=== PATIENT | female | born 1965 | race African-American/Black ===

== ENCOUNTER 2018-05-24 09:38 | Emergency (ER) | payer MEDICAID, MEDICARE ==
[~2018-05-24] VITALS: Ht 157.5 cm; Wt 50.0 kg
[~2018-05-24 09:38] MED LIST: CYCL10TA7 MT; DIPH50CA38 MT; LISI-186; TRAM50TA3 PO
[2018-05-24] MEDS ORDERED: SODIUM CHLORIDE 0.9% 1,000 ML IV ONE (09:50)
[2018-05-24] MEDS ORDERED: HYDROCODONE/ACETAMINOPHEN 5/325MG TABLET PO ONE (10:15)
[2018-05-24 10:26] LABS: BASOPHILS % 0.8 % (0.0-2.0); EOSINOPHILS % 0.6 % (0.0-5.0); HEMATOCRIT. 37.3 % (36.0-48.0); LYMPHOCYTES % 23.4 % (20.0-50.0); MEAN CORPUSCULAR HEMOGLOBIN 30.1 pg (28.0-32.0); MEAN CORPUSCULAR VOLUME 86.5 fL (81.0-99.0); MEAN PLATELET VOLUME 9.5 fl (7.4-10.4); NEUTROPHILS % 68.2 % (40.0-76.0); PLATELET 199 x1000/uL (130-400); RED BLOOD CELL COUNT 4.31 mill/uL (4.2-5.4)
[2018-05-24 10:27] LABS: CHLORIDE 89 mEq/L (98-107)
[2018-05-24] MEDS ORDERED: KETOROLAC 30MG/ML VIAL IV ONE (12:45)
[2018-05-24 15:10] VITALS: BP 139/90
== END 2018-05-24 15:25 | disposition short-term general hospital (02) ==
LOC: ER 10:02 → CANBEDREQ 14:10 → ER 15:25
DX: R55 Syncope and collapse (principal); E86.0 Dehydration; R79.89 Other specified abnormal findings of blood chemistry; R11.2 Nausea with vomiting, unspecified; R51 Headache; J45.909 Unspecified asthma, uncomplicated; E11.9 Type 2 diabetes mellitus without complications; I10 Essential (primary) hypertension; Z88.0 Allergy status to penicillin; Z79.899 Other long term (current) drug therapy
CPT/HCPCS: 36415; 71045; 80053; 82962; 83605; 83880; 84484; 85025; 93005; 96361; 96374; 99285; J1885; J7030; Z7610

== ENCOUNTER 2018-07-08 22:47 | Inpatient (IN) | payer MEDICARE ==
[~2018-07-08] VITALS: Ht 167.6 cm; Wt 62.1 kg
[2018-07-08] MEDS ORDERED: KETOROLAC 30MG/ML VIAL IV STA (23:06)
[2018-07-08] MEDS ORDERED: METHYLPREDNISOLONE SOD SUCC 125 MG/2 ML VIAL IV STA (23:06)
[2018-07-08 23:44] LABS: BASOPHILS % 0.5 % (0.0-2.0); EOSINOPHILS % 1.5 % (0.0-5.0); HEMATOCRIT. 26.3 % (36.0-48.0); HEMOGLOBIN. 8.9 g/dL (12.0-16.0); LYMPHOCYTES % 18.3 % (20.0-50.0); MEAN CORPUSCULAR HEMOGLOBIN 30.3 pg (28.0-32.0); MEAN CORPUSCULAR VOLUME 89.1 fL (81.0-99.0); MEAN PLATELET VOLUME 8.7 fl (7.4-10.4); MONOCYTES % 6.8 % (2.0-8.0); NEUTROPHILS % 72.9 % (40.0-76.0); PLATELET 242 x1000/uL (130-400); RED BLOOD CELL COUNT 2.95 mill/uL (4.2-5.4); RED CELL DISTRIBUTION WIDTH 14.5 % (11.6-14.6)
[2018-07-08 23:52] LABS: CHLORIDE 100 mEq/L (98-107)
[2018-07-09] MEDS ORDERED: LABETALOL HCL 20MG/4ML CARPUJECT IV ONE ×2 (00:45→02:30)
[2018-07-09] MEDS ORDERED: MORPHINE SULFATE 4 MG/ML CPJ (NOT FOR IM USE) IV ONE (02:30)
[2018-07-09] MEDS ORDERED: DIPHENHYDRAMINE 25MG CAPSULE PO ONE (02:30)
[2018-07-09] MEDS ORDERED: CLONIDINE 0.2MG TABLET PO ONE ×2 (02:30→08:30)
[2018-07-09] MEDS ORDERED: MORPHINE SULFATE 4 MG/ML CPJ (NOT FOR IM USE) IV NR (03:45)
[2018-07-09] MEDS ORDERED: LABETALOL HCL 20MG/4ML CARPUJECT IV NR (03:45)
[2018-07-09] MEDS ORDERED: FUROSEMIDE 40MG/4ML VIAL IVP ONE (08:30)
[2018-07-09] MEDS ORDERED: GUAIFENESIN 200MG/10ML SUGAR FREE UDC PO PRN (10:15)
[2018-07-09] MEDS ORDERED: DOCUSATE SODIUM 100MG CAPSULE PO PRN (10:15)
[2018-07-09] MEDS ORDERED: HYDROCODONE/ACETAMINOPHEN 5/325MG TABLET PO PRN (10:15)
[2018-07-09] MEDS ORDERED: ACETAMINOPHEN 650MG SUPP PR PRN (10:15)
[2018-07-09] MEDS ORDERED: MAGNESIUM/ALUMINUM HYDROXIDE/SIMETHICONE 30ML UDC PO PRN (10:15)
[2018-07-09] MEDS ORDERED: LORAZEPAM 0.5MG TABLET PO PRN (10:15)
[2018-07-09] MEDS ORDERED: IPRATROPIUM/ALBUTEROL 0.5-3(2.5)MG/3ML NEB INH PRN (10:15)
[2018-07-09] MEDS ORDERED: NA PHOS,M-B/NA PHOS,DI-BA ENEMA 118ML PR PRN (10:15)
[2018-07-09] MEDS ORDERED: ACETAMINOPHEN 325MG TABLET PO PRN (10:15)
[2018-07-09] MEDS ORDERED: DEXTROSE 50% WATER 50ML SYRINGE IV PRN (10:15)
[2018-07-09] MEDS ORDERED: IPRATROPIUM/ALBUTEROL 0.5-3(2.5)MG/3ML NEB INH SCH (10:15)
[2018-07-09] MEDS: DIPHENHYDRAMINE 50MG/ML VIAL IV PRN ×2 (10:31→22:48)
[2018-07-09] MEDS: MORPHINE SULFATE 4 MG/ML CPJ (NOT FOR IM USE) IV PRN ×3 (10:31→21:51)
[2018-07-09] MEDS ORDERED: LOSARTAN POTASSIUM 50 MG TABLET PO NR (10:45)
[2018-07-09] MEDS ORDERED: AMLODIPINE 5MG TABLET PO NR (10:45)
[2018-07-09 10:53] LABS: BG BASE EXCESS 0.2 mmol/L (-2.0-2.0); BG CARBOXYHEMOGLOBIN 1.2 % (0.5-1.5); BG DEOXYHEMOGLOBIN 16.7 % (0.0-5.0); BG HCO3 ACT 23.9 mmol/L (22.0-26.0); BG METHEMOGLOBIN 0.3 % (0.0-1.5); BG OXYHEMOGLOBIN 81.8 % (94.0-97.0); BG PCO2 35.6 mmHg (35.0-45.0); BG PH 7.445 (7.350-7.450); BG PO2 47.1 mmHg (75.0-100.0); BG SAMPLE SITE RIGHT BRACHIAL; BG TOTAL HEMOGLOBIN 11.4 g/dL (12.0-18.0); BG VENT MODE ROOM AIR
[2018-07-09 11:03] LABS: PROTHROMBIN TIME 10.4 sec (9.1-11.1)
[2018-07-09 11:14] LABS: PHOSPHORUS 3.7 mg/dL (2.5-4.9)
[2018-07-09 11:24] LABS: HEMATOCRIT 28.5 % (36.0-48.0); HEMOGLOBIN 9.4 g/dL (12.0-16.0); MEAN CORPUSCULAR HEMOGLOBIN 29.5 pg (28.0-32.0); MEAN CORPUSCULAR VOLUME 89.7 fL (81.0-99.0); PLATELET 248 x1000/uL (130-400); RED BLOOD CELL COUNT 3.18 mill/uL (4.2-5.4); RED CELL DISTRIBUTION WIDTH 14.9 % (11.6-14.6)
[2018-07-09] MEDS ORDERED: HYDRALAZINE 20MG/ML VIAL IV PRN (11:30)
[2018-07-09] MEDS ORDERED: LABETALOL 5MG/ML SYR 20 MG/4 ML SYRINGE IV SCH (11:30)
[2018-07-09] MEDS ORDERED: INSULIN GLARGINE UD 100 UNITS/ML SYR SUBCUT ONE (12:30)
[2018-07-09] MEDS: INSULIN LISPRO 100 UNITS/ML SUBCUT SCH ×3 (13:01→22:02)
[2018-07-09] MEDS ORDERED: INSULIN LISPRO 100 UNITS/ML SUBCUT SCH (13:20)
[2018-07-09 14:00] VITALS: BP_SYST 193; BP_SYST 203; BP_DIAS 103; BP_DIAS 96
[2018-07-09] MEDS ORDERED: CYCLOBENZAPRINE 10MG TABLET PO PRN (14:00)
[2018-07-09] MEDS: NICOTINE 14MG PATCH TD SCH (15:59)
[2018-07-09 16:00] VITALS: BP 202/108
[2018-07-09] MEDS: NITROGLYCERIN OINT 1GM/INCH UDPKT TD SCH ×2 (16:00→21:39)
[2018-07-09] MEDS: HYDRALAZINE 20MG/ML VIAL IV PRN (16:01)
[2018-07-09 16:02] LABS: CREATINE KINASE MB FRACTION 3.3 ng/mL (0.5-3.6)
[2018-07-09 18:00] VITALS: BP 181/90
[2018-07-09] MEDS: ONDANSETRON HCL 4MG/2ML INJ IV PRN ×2 (18:49→22:48)
[2018-07-09] MEDS: IPRATROPIUM/ALBUTEROL 0.5-3(2.5)MG/3ML NEB INH SCH (19:44)
[2018-07-09 20:00] VITALS: BP 198/105
[2018-07-09] MEDS ORDERED: NICARDIPINE 40MG/200ML PREMIX 200 ML IV SCH (20:15)
[2018-07-09] MEDS: BLOOD SUGAR DIAGNOSTIC STRIP TEST SCH (21:00)
[2018-07-09 22:00] VITALS: BP 166/97
[2018-07-09 23:56] VITALS: BP 176/96
[2018-07-10] VITALS (80 sets, daily range): BP systolic 122–171; BP diastolic 52–101
[2018-07-10] MEDS: HYDRALAZINE 20MG/ML VIAL IV PRN (00:01)
[2018-07-10] MEDS: NICARDIPINE 50 MG in SODIUM CHLORIDE 0.9% 230 ML IV PRN ×2 (00:36→13:48)
[2018-07-10] MEDS: MORPHINE SULFATE 4 MG/ML CPJ (NOT FOR IM USE) IV PRN ×5 (02:01→22:56)
[2018-07-10 05:48] LABS: BASOPHILS % 0.4 % (0.0-2.0); HEMATOCRIT. 24.1 % (36.0-48.0); LYMPHOCYTES % 13.6 % (20.0-50.0); MEAN CORPUSCULAR HEMOGLOBIN 29.5 pg (28.0-32.0); MEAN CORPUSCULAR VOLUME 88.9 fL (81.0-99.0); MONOCYTES % 7.9 % (2.0-8.0); NEUTROPHILS % 78.1 % (40.0-76.0); PLATELET 192 x1000/uL (130-400); RED BLOOD CELL COUNT 2.71 mill/uL (4.2-5.4); RED CELL DISTRIBUTION WIDTH 14.8 % (11.6-14.6)
[2018-07-10 05:53] LABS: CHLORIDE 98 mEq/L (98-107)
[2018-07-10 06:00] LABS: LDL CHOLESTEROL 72 mg/dL (5-100)
[2018-07-10 06:04] LABS: HDL CHOLESTEROL 70 mg/dL (40-59); T4 FREE 1.12 ng/dL (0.76-1.46)
[2018-07-10] MEDS: BLOOD SUGAR DIAGNOSTIC STRIP TEST SCH ×4 (06:35→21:08)
[2018-07-10] MEDS: INSULIN LISPRO 100 UNITS/ML SUBCUT SCH ×4 (06:42→21:00)
[2018-07-10] MEDS: NITROGLYCERIN OINT 1GM/INCH UDPKT TD SCH ×3 (06:43→21:08)
[2018-07-10] MEDS: DIPHENHYDRAMINE 50MG/ML VIAL IV PRN (08:59)
[2018-07-10] MEDS ORDERED: AMLODIPINE 5MG TABLET PO SCH (09:00)
[2018-07-10] MEDS ORDERED: LOSARTAN POTASSIUM 50 MG TABLET PO SCH (09:00)
[2018-07-10] MEDS ORDERED: FUROSEMIDE 40MG/4ML VIAL IV SCH (09:00)
[2018-07-10] MEDS: CLONIDINE 0.1MG TABLET PO PRN (09:01)
[2018-07-10] MEDS: NICOTINE 14MG PATCH TD SCH (09:02)
[2018-07-10] MEDS: IPRATROPIUM/ALBUTEROL 0.5-3(2.5)MG/3ML NEB INH SCH ×2 (09:05→21:33)
[2018-07-10] MEDS ORDERED: METOPROLOL TARTRATE 50MG TABLET PO ONE (11:30)
[2018-07-10] MEDS ORDERED: LORAZEPAM 0.5MG TABLET PO PRN (13:00)
[2018-07-10] MEDS ORDERED: DIPHENHYDRAMINE 50MG/ML VIAL IV PRN (13:00)
[2018-07-10] MEDS ORDERED: CYCLOBENZAPRINE 10MG TABLET PO PRN (13:00)
[2018-07-10] MEDS: SODIUM CHLORIDE 0.45% 1,000 ML IV SCH ×2 (13:48→22:56)
[2018-07-10] MEDS ORDERED: INSULIN GLARGINE UD 100 UNITS/ML SYR SUBCUT ONE (14:00)
[2018-07-10] MEDS: ASPIRIN 81MG EC TABLET PO SCH (16:00)
[2018-07-10] MEDS ORDERED: INSULIN GLARGINE UD 100 UNITS/ML SYR SUBCUT NR (16:00)
[2018-07-10 17:19] LABS: CLARITY URINE TURBID (CLEAR); COLOR URINE YELLOW (YELLOW); KETONES URINE NEGATIVE (NEGATIVE); LEUKOCYTE ESTERASE URINE TRACE (NEGATIVE); NITRITE URINE NEGATIVE (NEGATIVE); OCCULT BLOOD URINE TRACE (NEGATIVE); PROTEIN URINE 2+ (NEGATIVE); SPECIFIC GRAVITY URINE 1.012 (1.005-1.030); UROBILINOGEN URINE 0.2 E.U./dL (0.2-1.0)
[2018-07-10 17:32] LABS: *AMPHETAMINES SCREEN URINE NEGATIVE (NEGATIVE); *BARBITURATES SCREEN URINE NEGATIVE (NEGATIVE); *BENZODIAZEPINES SCREEN URINE NEGATIVE (NEGATIVE); *COCAINE SCREEN URINE NEGATIVE (NEGATIVE)
[2018-07-10 17:33] LABS: CANNABINOID URINE SCREEN NEGATIVE (NEGATIVE); METHADONE URINE SCREEN NEGATIVE (NEGATIVE); OPIATES URINE SCREEN PRESUMTIVE POSITIVE (NEGATIVE); PHENCYCLIDINE URINE SCREEN NEGATIVE (NEGATIVE)
[2018-07-10] MEDS: METOPROLOL TARTRATE 50MG TABLET PO SCH (21:07)
[2018-07-10] MEDS: AMLODIPINE 5MG TABLET PO SCH (21:08)
[2018-07-10] MEDS ORDERED: NAPROXEN 250MG TABLET PO PRN (23:15)
[2018-07-11] VITALS (21 sets, daily range): BP systolic 111–192; BP diastolic 79–124
[2018-07-11] MEDS: CLONIDINE 0.1MG TABLET PO PRN (01:43)
[2018-07-11] MEDS: IPRATROPIUM/ALBUTEROL 0.5-3(2.5)MG/3ML NEB INH SCH ×3 (02:03→13:21)
[2018-07-11] MEDS: MORPHINE SULFATE 4 MG/ML CPJ (NOT FOR IM USE) IV PRN ×4 (04:52→17:46)
[2018-07-11] MEDS: INSULIN LISPRO 100 UNITS/ML SUBCUT SCH ×4 (06:06→17:56)
[2018-07-11] MEDS: BLOOD SUGAR DIAGNOSTIC STRIP TEST SCH ×3 (06:06→17:56)
[2018-07-11] MEDS: NITROGLYCERIN OINT 1GM/INCH UDPKT TD SCH ×2 (06:06→13:08)
[2018-07-11 06:11] LABS: HEMATOCRIT 24.1 % (36.0-48.0); HEMOGLOBIN 8.1 g/dL (12.0-16.0); MEAN CORPUSCULAR HEMOGLOBIN 29.7 pg (28.0-32.0); MEAN CORPUSCULAR VOLUME 88.5 fL (81.0-99.0); PLATELET 195 x1000/uL (130-400); RED BLOOD CELL COUNT 2.72 mill/uL (4.2-5.4); RED CELL DISTRIBUTION WIDTH 14.5 % (11.6-14.6)
[2018-07-11] MEDS: NICOTINE 14MG PATCH TD SCH (08:03)
[2018-07-11] MEDS: METOPROLOL TARTRATE 50MG TABLET PO SCH ×2 (08:03→20:34)
[2018-07-11] MEDS: ASPIRIN 81MG EC TABLET PO SCH (08:03)
[2018-07-11] MEDS: AMLODIPINE 5MG TABLET PO SCH ×2 (08:04→20:34)
[2018-07-11] MEDS: CLONIDINE 0.2MG TABLET PO SCH ×2 (09:59→13:08)
[2018-07-11] MEDS ORDERED: INSULIN GLARGINE UD 100 UNITS/ML SYR SUBCUT SCH (10:00)
[2018-07-11] MEDS ORDERED: CLONIDINE 0.1MG TABLET PO SCH (10:15)
[2018-07-11] MEDS ORDERED: SODIUM CHLORIDE 0.9% 1,000 ML IV SCH (10:15)
[2018-07-11] MEDS ORDERED: MORPHINE SULFATE 4 MG/ML CPJ (NOT FOR IM USE) IV NR (10:30)
[2018-07-11] MEDS ORDERED: POTASSIUM CHLORIDE 20MEQ TABLET SR PO NR (10:30)
[2018-07-11] MEDS: HYDRALAZINE 20MG/ML VIAL IV PRN (10:45)
[2018-07-11] MEDS ORDERED: LORAZEPAM 0.5MG TABLET PO PRN (13:00)
== END 2018-07-11 21:20 | disposition home or self-care (01) | DRG 199 ==
LOC: ER 22:47 → 5EST 07-09 03:45 → EDBEDREQDT 07-09 03:57 → EDBEDREQTM 07-09 03:57 → EDBEDREQ 07-09 03:57 → CANRESERV 07-09 07:41 → ENRESERV 07-09 07:41 → EDBEDREQSVC 07-09 11:32 → ENRESERV 07-09 11:51 → MICUSO 07-10 00:21 → 5EST 07-11 11:50
PROVIDERS: ADMIT Internal Medicine; ATTEND Internal Medicine
DX: I16.0 Hypertensive urgency (principal); J96.00 Acute respiratory failure, unspecified whether with hypoxia or hypercapnia; N17.9 Acute kidney failure, unspecified; J84.9 Interstitial pulmonary disease, unspecified; I27.20 Pulmonary hypertension, unspecified; E11.65 Type 2 diabetes mellitus with hyperglycemia; F11.20 Opioid dependence, uncomplicated; I50.9 Heart failure, unspecified; I11.0 Hypertensive heart disease with heart failure; F17.210 Nicotine dependence, cigarettes, uncomplicated; J45.909 Unspecified asthma, uncomplicated; M79.7 Fibromyalgia; Z91.19 Patient's noncompliance with other medical treatment and regimen; Z88.0 Allergy status to penicillin; Z79.899 Other long term (current) drug therapy
CPT/HCPCS: 36415; 36600; 71045; 80048; 80061; 80305; 82375; 82550; 82553; 82805; 82962; 83036; 83605; 83735; 83880; 84100; 84439; 84443; 84484; 85027; 87804; 93005; 93306; 93970; 94640; 96374; 96375; 99285; J0360; J1200; J1815; J1885; J1940; J2270; J2405; J2930; J3490; J7050; J7620; Q0163

== ENCOUNTER 2018-10-04 01:00 | Emergency (ER) | payer MEDICAID, MEDICARE ==
[~2018-10-04] VITALS: Ht 162.6 cm; Wt 63.0 kg
[2018-10-04] MEDS ORDERED: FENTANYL CITRATE/PF 50MCG/ML 2ML VIAL IV ONE (02:30)
[2018-10-04] MEDS ORDERED: KETOROLAC 15MG/ML VIAL IV ONE (02:30)
[2018-10-04] MEDS ORDERED: CLONIDINE 0.2MG TABLET PO ONE (02:30)
[2018-10-04 03:52] VITALS: BP 156/82
== END 2018-10-04 04:54 | disposition home or self-care (01) ==
LOC: ER 01:16
DX: M79.7 Fibromyalgia (principal); I11.0 Hypertensive heart disease with heart failure; I50.9 Heart failure, unspecified; J45.909 Unspecified asthma, uncomplicated; E11.9 Type 2 diabetes mellitus without complications; Z98.51 Tubal ligation status; Z88.0 Allergy status to penicillin; Z79.899 Other long term (current) drug therapy
CPT/HCPCS: 96374; 96375; 99283; J1885; J3010; Z7610

== ENCOUNTER 2018-10-31 00:47 | Emergency (ER) | payer MEDICAID ==
[~2018-10-31] VITALS: Ht 167.6 cm; Wt 70.0 kg
[2018-10-31] MEDS ORDERED: ONDANSETRON HCL 4MG/2ML INJ IV ONE (01:45)
[2018-10-31] MEDS ORDERED: SODIUM CHLORIDE 0.9% 500 ML IV ONE (01:45)
[2018-10-31] MEDS ORDERED: FENTANYL CITRATE/PF 50MCG/ML 2ML VIAL IV ONE (01:45)
[2018-10-31] MEDS ORDERED: CLONIDINE 0.2MG TABLET PO ONE (01:45)
[2018-10-31 02:12] LABS: BASOPHILS % 0.8 % (0.0-2.0); EOSINOPHILS % 2.1 % (0.0-5.0); HEMATOCRIT. 24.6 % (36.0-48.0); HEMOGLOBIN. 8.1 g/dL (12.0-16.0); LYMPHOCYTES % 22.8 % (20.0-50.0); MEAN CORPUSCULAR HEMOGLOBIN 29.2 pg (28.0-32.0); MEAN CORPUSCULAR VOLUME 88.6 fL (81.0-99.0); MEAN PLATELET VOLUME 8.4 fl (7.4-10.4); MONOCYTES % 9.7 % (2.0-8.0); NEUTROPHILS % 64.6 % (40.0-76.0); PLATELET 243 x1000/uL (130-400); RED BLOOD CELL COUNT 2.77 mill/uL (4.2-5.4); RED CELL DISTRIBUTION WIDTH 15.4 % (11.6-14.6)
[2018-10-31 02:18] LABS: CHLORIDE 106 mEq/L (98-107)
[2018-10-31] MEDS ORDERED: SODIUM CHLORIDE 0.9% 1000ML BAG (SEPSIS BOLUS) IV ONE (02:30)
[2018-10-31] MEDS ORDERED: LEVOFLOXACIN 500MG PREMIX 100 ML IV ONE (02:30)
[2018-10-31 03:01] LABS: BG BASE EXCESS -0.8 mmol/L (-2.0-2.0); BG CARBOXYHEMOGLOBIN 2.6 % (0.5-1.5); BG DEOXYHEMOGLOBIN 11.5 % (0.0-5.0); BG FRACTION INSPIRED OXYGEN 32; BG HCO3 ACT 24.2 mmol/L (22.0-26.0); BG METHEMOGLOBIN 0.3 % (0.0-1.5); BG OXYGEN SATURATION 88.2 % (92.0-98.5); BG OXYHEMOGLOBIN 85.6 % (94.0-97.0); BG PCO2 41.7 mmHg (35.0-45.0); BG PH 7.382 (7.350-7.450); BG PO2 55.6 mmHg (75.0-100.0); BG SAMPLE SITE LEFT RADIAL; BG TOTAL HEMOGLOBIN 8.5 g/dL (12.0-18.0); BG VENT MODE NASAL CANNULA
[2018-10-31 03:05] LABS: INR 0.9; PROTHROMBIN TIME 9.6 sec (9.6-11.0)
[2018-10-31] MEDS ORDERED: IOHEXOL-350 100 ML BOTTLE ONE (03:45)
[2018-10-31] MEDS ORDERED: MORPHINE SULFATE 4 MG/ML CPJ (NOT FOR IM USE) IV ONE (04:30)
[2018-10-31] MEDS ORDERED: HYDRALAZINE 20MG/ML VIAL IV ONE (04:30)
[2018-10-31] MEDS: FUROSEMIDE 40MG/4ML VIAL IVP NR ×2 (04:44→06:29)
[2018-10-31 08:05] VITALS: BP 180/99
== END 2018-10-31 08:47 | disposition left against medical advice (07) ==
LOC: ER 00:47 → EDBEDREQ 04:31 → EDBEDREQTM 04:31 → ENRESERV 07:01 → CANRESERV 07:01 → ER 08:47 → CANBEDREQ 12:04
DX: R06.03 Acute respiratory distress (principal); R09.02 Hypoxemia; J45.909 Unspecified asthma, uncomplicated; E11.9 Type 2 diabetes mellitus without complications; I10 Essential (primary) hypertension; M79.7 Fibromyalgia; Z88.0 Allergy status to penicillin
CPT/HCPCS: 36415; 36600; 71045; 71275; 80053; 82375; 82805; 83605; 83880; 84145; 84484; 85025; 85610; 87040; 93005; 96365; 96375; 99291; J0360; J1940; J1956; J2270; J2405; J3010; J7030; J7040; Q9967; Z7610

== ENCOUNTER 2018-11-21 06:27 | Inpatient (IN) | payer MEDICAID ==
[~2018-11-21] VITALS: Ht 172.7 cm; Wt 54.9 kg
[2018-11-21] MEDS ORDERED: MORPHINE SULFATE 4 MG/ML CPJ (NOT FOR IM USE) IV ONE (06:45)
[2018-11-21] MEDS ORDERED: ONDANSETRON HCL 4MG/2ML INJ IV ONE (06:45)
[2018-11-21] MEDS ORDERED: MORPHINE SULFATE 10 MG/ML CPJ IV ONE (07:00)
[2018-11-21 07:27] LABS: CHLORIDE 98 mEq/L (98-107)
[2018-11-21 07:28] LABS: BASOPHILS % 0.6 % (0.0-2.0); EOSINOPHILS % 2.1 % (0.0-5.0); HEMOGLOBIN. 10.8 g/dL (12.0-16.0); LYMPHOCYTES % 24.8 % (20.0-50.0); MEAN CORPUSCULAR HEMOGLOBIN 29.3 pg (28.0-32.0); MEAN CORPUSCULAR VOLUME 86.7 fL (81.0-99.0); MEAN PLATELET VOLUME 8.8 fl (7.4-10.4); MONOCYTES % 13.6 % (2.0-8.0); NEUTROPHILS % 58.9 % (40.0-76.0); PLATELET 238 x1000/uL (130-400); RED BLOOD CELL COUNT 3.69 mill/uL (4.2-5.4); RED CELL DISTRIBUTION WIDTH 14.7 % (11.6-14.6)
[2018-11-21 07:31] LABS: ETHANOL BLOOD < 10 mg/dL
[2018-11-21] MEDS ORDERED: POTASSIUM CHLORIDE 20MEQ TABLET SR PO ONE (07:45)
[2018-11-21] MEDS ORDERED: LABETALOL 5MG/ML SYR 20 MG/4 ML SYRINGE IV ONE (08:00)
[2018-11-21 09:15] VITALS: BP 181/100
[2018-11-21] MEDS: ENOXAPARIN 40MG/0.4ML SYR SUBCUT SCH (10:45)
[2018-11-21] MEDS ORDERED: ACETAMINOPHEN 325MG TABLET PO PRN ×2 (10:45→11:00)
[2018-11-21] MEDS ORDERED: HYDROCODONE/ACETAMINOPHEN 5/325MG TABLET PO PRN (10:45)
[2018-11-21] MEDS ORDERED: LISINOPRIL 10MG TABLET PO SCH (10:45)
[2018-11-21] MEDS: CLONIDINE 0.2MG TABLET PO PRN ×2 (10:56→17:27)
[2018-11-21] MEDS: MORPHINE SULFATE 2 MG/ML CPJ (NOT FOR IM USE) IV PRN ×2 (10:56→17:00)
[2018-11-21 12:00] VITALS: BP 124/80
[2018-11-21] MEDS ORDERED: CLONIDINE 0.1MG TABLET PO SCH (14:30)
[2018-11-21] MEDS ORDERED: INSU100I28 SQ (14:56)
[2018-11-21] MEDS ORDERED: CLON0.2T MT (14:56)
[2018-11-21] MEDS ORDERED: TRAM150C25 PO (14:56)
[2018-11-21] MEDS ORDERED: NICO-645 TP (14:56)
[2018-11-21] MEDS ORDERED: INSLIS SUBCUT (14:56)
[2018-11-21] MEDS ORDERED: [UNRECOGNIZED DRUG - OTHER] (14:56)
[2018-11-21] MEDS ORDERED: [UNRECOGNIZED DRUG - OTHER] (14:56)
[2018-11-21] MEDS ORDERED: FURO-152 MT (14:56)
[2018-11-21] MEDS ORDERED: BENA5TAB6 MT (14:56)
[2018-11-21] MEDS ORDERED: HYDR100T26 MT (14:56)
[2018-11-21] MEDS ORDERED: CIPROFLOXACIN EACHEYE (16:10)
[2018-11-21 16:30] VITALS: BP 185/100
[2018-11-21] MEDS: CLONIDINE 0.1MG TABLET PO SCH ×2 (17:00→21:06)
[2018-11-21] MEDS: FUROSEMIDE 40MG TABLET PO SCH (17:03)
[2018-11-21] MEDS: BLOOD SUGAR DIAGNOSTIC STRIP TEST SCH ×2 (17:10→20:59)
[2018-11-21] MEDS: INSULIN LISPRO 100 UNITS/ML SUBCUT SCH ×2 (17:21→21:16)
[2018-11-21] MEDS ORDERED: INSULIN LISPRO 100 UNITS/ML SUBCUT SCH (18:45)
[2018-11-21 19:12] VITALS: BP 116/71
[2018-11-21 20:00] VITALS: BP 130/70
[2018-11-21] MEDS: MORPHINE SULFATE 4 MG/ML CPJ (NOT FOR IM USE) IV PRN (21:07)
[2018-11-21] MEDS: INSULIN GLARGINE UD 100 UNITS/ML SYR SUBCUT SCH (21:17)
[2018-11-22] VITALS: BP 121/71
[2018-11-22] MEDS: MORPHINE SULFATE 4 MG/ML CPJ (NOT FOR IM USE) IV PRN ×4 (03:37→19:41)
[2018-11-22 04:00] VITALS: BP 170/90
[2018-11-22] MEDS: CLONIDINE 0.1MG TABLET PO SCH ×3 (06:23→22:16)
[2018-11-22] MEDS: INSULIN LISPRO 100 UNITS/ML SUBCUT SCH ×7 (06:27→21:00)
[2018-11-22] MEDS: BLOOD SUGAR DIAGNOSTIC STRIP TEST SCH ×4 (06:28→21:00)
[2018-11-22 08:00] VITALS: BP 127/68
[2018-11-22] MEDS: ENOXAPARIN 40MG/0.4ML SYR SUBCUT SCH (09:00)
[2018-11-22] MEDS: FUROSEMIDE 40MG TABLET PO SCH (09:25)
[2018-11-22] MEDS: LISINOPRIL 10MG TABLET PO SCH ×2 (09:25→22:16)
[2018-11-22 12:00] VITALS: BP 182/101
[2018-11-22] MEDS: CLONIDINE 0.2MG TABLET PO PRN (12:06)
[2018-11-22 15:28] LABS: BASOPHILS % 0.4 % (0.0-2.0); EOSINOPHILS % 2.3 % (0.0-5.0); HEMATOCRIT. 29.1 % (36.0-48.0); HEMOGLOBIN. 9.7 g/dL (12.0-16.0); LYMPHOCYTES % 39.5 % (20.0-50.0); MEAN CORPUSCULAR HEMOGLOBIN 28.9 pg (28.0-32.0); MEAN CORPUSCULAR VOLUME 86.8 fL (81.0-99.0); MEAN PLATELET VOLUME 8.5 fl (7.4-10.4); NEUTROPHILS % 49.8 % (40.0-76.0); PLATELET 217 x1000/uL (130-400); RED BLOOD CELL COUNT 3.35 mill/uL (4.2-5.4); RED CELL DISTRIBUTION WIDTH 14.3 % (11.6-14.6)
[2018-11-22 16:00] VITALS: BP 109/67
[2018-11-22] MEDS: SODIUM CHLORIDE 0.9% 1,000 ML IV SCH (19:20)
[2018-11-22 20:00] VITALS: BP 136/79
[2018-11-22] MEDS: ONDANSETRON HCL 4MG/2ML INJ IV PRN (20:02)
[2018-11-22] MEDS: DEXTROSE 50% WATER 50ML SYRINGE IV PRN (21:55)
[2018-11-22] MEDS: INSULIN GLARGINE UD 100 UNITS/ML SYR SUBCUT SCH (22:00)
[2018-11-23] VITALS: BP_SYST 136; BP_SYST 146; BP_DIAS 66; BP_DIAS 78
[2018-11-23] MEDS: MORPHINE SULFATE 4 MG/ML CPJ (NOT FOR IM USE) IV PRN ×5 (01:37→21:22)
[2018-11-23 04:00] VITALS: BP 167/80
[2018-11-23] MEDS: BLOOD SUGAR DIAGNOSTIC STRIP TEST SCH ×4 (06:06→21:44)
[2018-11-23] MEDS: SODIUM CHLORIDE 0.9% 1,000 ML IV SCH ×2 (06:06→19:40)
[2018-11-23] MEDS: CLONIDINE 0.1MG TABLET PO SCH ×3 (06:18→21:43)
[2018-11-23] MEDS: INSULIN LISPRO 100 UNITS/ML SUBCUT SCH ×7 (06:24→21:44)
[2018-11-23] MEDS: ONDANSETRON HCL 4MG/2ML INJ IV PRN ×3 (06:28→16:33)
[2018-11-23 08:34] LABS: BASOPHILS % 0.4 % (0.0-2.0); EOSINOPHILS % 2.1 % (0.0-5.0); HEMOGLOBIN. 9.9 g/dL (12.0-16.0); MEAN CORPUSCULAR HEMOGLOBIN 28.6 pg (28.0-32.0); MEAN CORPUSCULAR VOLUME 86.9 fL (81.0-99.0); MONOCYTES % 5.5 % (2.0-8.0); PLATELET 240 x1000/uL (130-400); RED BLOOD CELL COUNT 3.45 mill/uL (4.2-5.4); RED CELL DISTRIBUTION WIDTH 14.9 % (11.6-14.6)
[2018-11-23 08:54] LABS: CHLORIDE 97 mEq/L (98-107)
[2018-11-23] MEDS: ENOXAPARIN 40MG/0.4ML SYR SUBCUT SCH (09:00)
[2018-11-23] MEDS: LISINOPRIL 10MG TABLET PO SCH ×2 (09:28→21:43)
[2018-11-23 12:00] VITALS: BP 144/88
[2018-11-23] MEDS ORDERED: REGADENOSON 0.4 MG/5 ML IV NR (15:00)
[2018-11-23 16:00] VITALS: BP 143/75
[2018-11-23 20:00] VITALS: BP 144/64
[2018-11-23] MEDS: INSULIN GLARGINE UD 100 UNITS/ML SYR SUBCUT SCH (21:45)
[2018-11-24] VITALS: BP 183/82
[2018-11-24] MEDS: CLONIDINE 0.2MG TABLET PO PRN ×3 (00:55→22:34)
[2018-11-24] MEDS: MORPHINE SULFATE 4 MG/ML CPJ (NOT FOR IM USE) IV PRN ×5 (03:31→22:25)
[2018-11-24] MEDS: ONDANSETRON HCL 4MG/2ML INJ IV PRN ×2 (03:36→20:35)
[2018-11-24 04:00] VITALS: BP 185/92
[2018-11-24] MEDS: INSULIN LISPRO 100 UNITS/ML SUBCUT SCH ×7 (07:10→21:00)
[2018-11-24] MEDS: CLONIDINE 0.1MG TABLET PO SCH ×3 (07:13→22:25)
[2018-11-24] MEDS: BLOOD SUGAR DIAGNOSTIC STRIP TEST SCH ×4 (07:13→21:00)
[2018-11-24 07:22] LABS: BASOPHILS % 0.4 % (0.0-2.0); EOSINOPHILS % 1.4 % (0.0-5.0); HEMATOCRIT. 26.6 % (36.0-48.0); HEMOGLOBIN. 8.9 g/dL (12.0-16.0); MEAN CORPUSCULAR HEMOGLOBIN 29.1 pg (28.0-32.0); MEAN CORPUSCULAR VOLUME 86.7 fL (81.0-99.0); MEAN PLATELET VOLUME 9.3 fl (7.4-10.4); MONOCYTES % 11.5 % (2.0-8.0); NEUTROPHILS % 58.7 % (40.0-76.0); PLATELET 235 x1000/uL (130-400); RED BLOOD CELL COUNT 3.07 mill/uL (4.2-5.4); RED CELL DISTRIBUTION WIDTH 14.2 % (11.6-14.6)
[2018-11-24] MEDS: ENOXAPARIN 30MG/0.3ML SYR SUBCUT SCH (09:00)
[2018-11-24] MEDS: SODIUM CHLORIDE 0.9% 1,000 ML IV SCH (09:00)
[2018-11-24] MEDS: LISINOPRIL 10MG TABLET PO SCH (09:47)
[2018-11-24 12:00] VITALS: BP 208/102
[2018-11-24] MEDS: FOLIC ACID/VITAMIN B COMP W-C TABLET PO SCH (15:30)
[2018-11-24 20:00] VITALS: BP 169/90
[2018-11-24] MEDS: AMLODIPINE 5MG TABLET PO SCH (20:36)
[2018-11-24] MEDS: LISINOPRIL 20MG TABLET PO SCH (20:39)
[2018-11-24] MEDS: DEXTROSE 50% WATER 50ML SYRINGE IV PRN (21:58)
[2018-11-24] MEDS: INSULIN GLARGINE UD 100 UNITS/ML SYR SUBCUT SCH (23:19)
[2018-11-25] VITALS: BP 167/88
[2018-11-25] MEDS ORDERED: BLOOD SUGAR DIAGNOSTIC STRIP TEST SCH (02:00)
[2018-11-25] MEDS: ONDANSETRON HCL 4MG/2ML INJ IV PRN (03:17)
[2018-11-25] MEDS: MORPHINE SULFATE 4 MG/ML CPJ (NOT FOR IM USE) IV PRN ×5 (03:20→22:49)
[2018-11-25] MEDS: CLONIDINE 0.2MG TABLET PO PRN ×2 (03:39→08:18)
[2018-11-25 04:00] VITALS: BP 175/96
[2018-11-25] MEDS: CLONIDINE 0.1MG TABLET PO SCH (05:48)
[2018-11-25] MEDS: BLOOD SUGAR DIAGNOSTIC STRIP TEST SCH ×4 (06:55→21:00)
[2018-11-25] MEDS: INSULIN LISPRO 100 UNITS/ML SUBCUT SCH ×7 (06:55→21:00)
[2018-11-25 08:00] VITALS: BP 232/131
[2018-11-25] MEDS: FOLIC ACID/VITAMIN B COMP W-C TABLET PO SCH (08:18)
[2018-11-25] MEDS: LISINOPRIL 20MG TABLET PO SCH ×2 (08:18→22:50)
[2018-11-25] MEDS: AMLODIPINE 5MG TABLET PO SCH (08:18)
[2018-11-25] MEDS: ENOXAPARIN 30MG/0.3ML SYR SUBCUT SCH (08:28)
[2018-11-25] MEDS ORDERED: NIFEDIPINE XL 60MG TAB PO SCH (09:00)
[2018-11-25 12:00] VITALS: BP 195/99
[2018-11-25] MEDS ORDERED: NITROGLYCERIN OINT 1GM/INCH UDPKT TD SCH (12:30)
[2018-11-25] MEDS ORDERED: HYDRALAZINE HCL 50MG TABLET PO SCH (14:00)
[2018-11-25] MEDS: CLONIDINE 0.2MG TABLET PO SCH ×2 (14:30→22:49)
[2018-11-25] MEDS: HYDRALAZINE HCL 100MG TABLET PO SCH ×2 (14:30→22:50)
[2018-11-25 15:55] LABS: HEMATOCRIT 28.2 % (36.0-48.0); HEMOGLOBIN 9.5 g/dL (12.0-16.0); MEAN CORPUSCULAR HEMOGLOBIN 29.4 pg (28.0-32.0); MEAN CORPUSCULAR VOLUME 87.3 fL (81.0-99.0); PLATELET 247 x1000/uL (130-400); RED BLOOD CELL COUNT 3.23 mill/uL (4.2-5.4); RED CELL DISTRIBUTION WIDTH 14.6 % (11.6-14.6)
[2018-11-25] MEDS ORDERED: CYCLOBENZAPRINE 10MG TABLET PO PRN (18:00)
[2018-11-25 20:00] VITALS: BP 148/78
[2018-11-25] MEDS: NIFEDIPINE XL 60MG TAB PO SCH ×2 (21:00→22:50)
[2018-11-25] MEDS: INSULIN GLARGINE UD 100 UNITS/ML SYR SUBCUT SCH (22:49)
[2018-11-26] VITALS (7 sets, daily range): BP systolic 115–163; BP diastolic 68–96
[2018-11-26] MEDS: MORPHINE SULFATE 4 MG/ML CPJ (NOT FOR IM USE) IV PRN ×3 (02:48→15:02)
[2018-11-26] MEDS: HYDRALAZINE HCL 100MG TABLET PO SCH ×2 (05:49→15:01)
[2018-11-26] MEDS: CLONIDINE 0.2MG TABLET PO SCH ×2 (06:00→15:01)
[2018-11-26] MEDS: INSULIN LISPRO 100 UNITS/ML SUBCUT SCH ×4 (07:10→12:03)
[2018-11-26] MEDS: BLOOD SUGAR DIAGNOSTIC STRIP TEST SCH ×2 (07:45→11:57)
[2018-11-26] MEDS: NIFEDIPINE XL 60MG TAB PO SCH ×2 (08:34→09:00)
[2018-11-26] MEDS: FOLIC ACID/VITAMIN B COMP W-C TABLET PO SCH (08:34)
[2018-11-26] MEDS: LISINOPRIL 20MG TABLET PO SCH (08:36)
[2018-11-26] MEDS: ENOXAPARIN 30MG/0.3ML SYR SUBCUT SCH ×2 (08:36→08:37)
[2018-11-26] MEDS ORDERED: REGADENOSON 0.4 MG/5 ML IV ONE ×2 (10:45→13:27)
[2018-11-26 13:09] LABS: BASOPHILS % 0.3 % (0.0-2.0); EOSINOPHILS % 2.5 % (0.0-5.0); HEMATOCRIT. 27.2 % (36.0-48.0); HEMOGLOBIN. 9.2 g/dL (12.0-16.0); LYMPHOCYTES % 29.1 % (20.0-50.0); MEAN CORPUSCULAR HEMOGLOBIN 29.4 pg (28.0-32.0); MEAN CORPUSCULAR VOLUME 87.6 fL (81.0-99.0); MEAN PLATELET VOLUME 8.9 fl (7.4-10.4); NEUTROPHILS % 57.1 % (40.0-76.0); PLATELET 256 x1000/uL (130-400); RED BLOOD CELL COUNT 3.11 mill/uL (4.2-5.4); RED CELL DISTRIBUTION WIDTH 14.7 % (11.6-14.6)
[2018-12-19] MEDS ORDERED: TRAM50TA3 PO (18:27)
[2018-12-19] MEDS ORDERED: CYCL10TA7 MT (18:34)
[2018-12-19] MEDS ORDERED: MORP60TA MT (18:34)
[2018-12-19] MEDS ORDERED: INSLIS SUBCUT (18:34)
== END 2018-11-26 17:40 | disposition home or self-care (01) | DRG 720 ==
LOC: ER 06:27 → EDBEDREQ 07:52 → 8WST 07:59 → EDBEDREQ 08:01 → ENRESERV 08:25
PROVIDERS: ADMIT Internal Medicine; ATTEND Internal Medicine
DX: A41.9 Sepsis, unspecified organism (principal); I21.4 Non-ST elevation (NSTEMI) myocardial infarction; N17.0 Acute kidney failure with tubular necrosis; E43 Unspecified severe protein-calorie malnutrition; E11.22 Type 2 diabetes mellitus with diabetic chronic kidney disease; F11.20 Opioid dependence, uncomplicated; E11.65 Type 2 diabetes mellitus with hyperglycemia; E87.1 Hypo-osmolality and hyponatremia; I50.9 Heart failure, unspecified; I16.0 Hypertensive urgency; G89.4 Chronic pain syndrome; M79.7 Fibromyalgia; E87.6 Hypokalemia; I27.20 Pulmonary hypertension, unspecified; N18.9 Chronic kidney disease, unspecified; I13.0 Hypertensive heart and chronic kidney disease with heart failure and stage 1 through stage 4 chronic kidney disease, or unspecified chronic kidney disease; F17.200 Nicotine dependence, unspecified, uncomplicated; Z88.0 Allergy status to penicillin; Z79.899 Other long term (current) drug therapy; Z87.01 Personal history of pneumonia (recurrent); Z68.1 Body mass index [BMI] 19.9 or less, adult
CPT/HCPCS: 36415; 71045; 76770; 78452; 80048; 80320; 82962; 83036; 83735; 83880; 84484; 85027; 93005; 93017; 93306; 96374; 99285; A9500; J1650; J1815; J2270; J2405; J2785; J3490; J7030; G0480

== ENCOUNTER 2018-11-30 03:53 | Emergency (ER) | payer MEDICAID ==
[~2018-11-30] VITALS: Ht 167.6 cm; Wt 59.0 kg
[~2018-11-30 03:53] MED LIST changes: +BENA5TAB6 MT; +CIPROFLOXACIN EACHEYE; +CLON0.2T MT; -CYCL10TA7 MT; +FURO-152 MT; +HYDR100T26 MT; +INSLIS SUBCUT; +INSU100I28 SQ; +NICO-645 TP; +TRAM150C25 PO; +[UNRECOGNIZED DRUG - OTHER]; +[UNRECOGNIZED DRUG - OTHER]
[2018-11-30] MEDS ORDERED: MORPHINE SULFATE 4 MG/ML CPJ (NOT FOR IM USE) IV STA (05:07)
[2018-11-30] MEDS ORDERED: ONDANSETRON HCL 4MG/2ML INJ IV STA (05:07)
[2018-11-30] MEDS ORDERED: HYDRALAZINE 20MG/ML VIAL IV ONE (05:15)
[2018-11-30] MEDS ORDERED: DIPHENHYDRAMINE 50MG/ML VIAL IV ONE (05:15)
[2018-11-30] MEDS ORDERED: MORPHINE SULFATE 4 MG/ML CPJ (NOT FOR IM USE) IV NR (05:30)
[2018-11-30] MEDS ORDERED: MORPHINE SULFATE 2 MG/ML CPJ (NOT FOR IM USE) IV NR (05:36)
[2018-11-30 06:04] LABS: BASOPHILS % 0.8 % (0.0-2.0); EOSINOPHILS % 1.3 % (0.0-5.0); HEMATOCRIT. 30.4 % (36.0-48.0); HEMOGLOBIN. 10.3 g/dL (12.0-16.0); LYMPHOCYTES % 19.5 % (20.0-50.0); MEAN CORPUSCULAR HEMOGLOBIN 29.3 pg (28.0-32.0); MEAN CORPUSCULAR VOLUME 86.6 fL (81.0-99.0); MEAN PLATELET VOLUME 9.1 fl (7.4-10.4); MONOCYTES % 9.8 % (2.0-8.0); NEUTROPHILS % 68.6 % (40.0-76.0); PLATELET 293 x1000/uL (130-400); RED BLOOD CELL COUNT 3.51 mill/uL (4.2-5.4); RED CELL DISTRIBUTION WIDTH 14.9 % (11.6-14.6)
[2018-11-30 06:12] LABS: CHLORIDE 101 mEq/L (98-107)
[2018-11-30 06:42] LABS: CLARITY URINE CLEAR (CLEAR); COLOR URINE YELLOW (YELLOW); KETONES URINE NEGATIVE (NEGATIVE); LEUKOCYTE ESTERASE URINE NEGATIVE (NEGATIVE); NITRITE URINE NEGATIVE (NEGATIVE); OCCULT BLOOD URINE TRACE (NEGATIVE); PROTEIN URINE 3+ (NEGATIVE); SPECIFIC GRAVITY URINE 1.016 (1.005-1.030); UROBILINOGEN URINE 0.2 E.U./dL (0.2-1.0)
[2018-11-30] MEDS ORDERED: MORPHINE SULFATE 4 MG/ML CPJ (NOT FOR IM USE) IV ONE (07:45)
[2018-11-30 08:17] VITALS: BP 198/110
== END 2018-11-30 08:25 | disposition home or self-care (01) ==
LOC: ER 03:53
DX: G89.29 Other chronic pain (principal); M79.7 Fibromyalgia; I10 Essential (primary) hypertension; E11.9 Type 2 diabetes mellitus without complications; J44.9 Chronic obstructive pulmonary disease, unspecified; F17.210 Nicotine dependence, cigarettes, uncomplicated; Z71.6 Tobacco abuse counseling; Z79.4 Long term (current) use of insulin
CPT/HCPCS: 36415; 71045; 80053; 81003; 84484; 85025; 93005; 96374; 96375; 96376; 99291; 99406; J0360; J1200; J2270; J2405

== ENCOUNTER 2018-12-03 01:32 | Emergency (ER) | payer MEDICAID ==
[~2018-12-03] VITALS: Ht 167.6 cm; Wt 68.0 kg
[2018-12-03] MEDS ORDERED: HYDRALAZINE 20MG/ML VIAL IV ONE ×2 (02:00→04:30)
[2018-12-03] MEDS ORDERED: KETOROLAC 30MG/ML VIAL IV ONE (02:15)
[2018-12-03] MEDS ORDERED: HYDROCODONE/ACETAMINOPHEN 10/325MG TABLET PO ONE (02:45)
[2018-12-03] MEDS ORDERED: ONDANSETRON HCL 4MG/2ML INJ IV ONE (03:00)
[2018-12-03] MEDS ORDERED: MORPHINE SULFATE 4 MG/ML CPJ (NOT FOR IM USE) IV ONE (03:00)
[2018-12-03] MEDS ORDERED: SODIUM CHLORIDE 0.9% 500 ML IV ONE (03:18)
[2018-12-03] MEDS ORDERED: CLONIDINE 0.2MG TABLET PO ONE ×2 (03:30→04:45)
[2018-12-03] MEDS ORDERED: BENAZEPRIL 10MG TABLET PO ONE (04:45)
[2018-12-03 05:23] VITALS: BP 173/102
== END 2018-12-03 06:55 | disposition home or self-care (01) ==
LOC: ER 01:32
DX: G89.29 Other chronic pain (principal); I10 Essential (primary) hypertension; J44.9 Chronic obstructive pulmonary disease, unspecified; E11.9 Type 2 diabetes mellitus without complications; M79.7 Fibromyalgia; Z79.4 Long term (current) use of insulin; Z88.0 Allergy status to penicillin
CPT/HCPCS: 93005; 96374; 96375; 99283; J0360; J1885; J2270; J2405; J7030

== ENCOUNTER 2018-12-07 10:09 | Inpatient (IN) | payer MEDICAID ==
[~2018-12-07] VITALS: Ht 167.6 cm; Wt 68.1 kg
[2018-12-07] MEDS ORDERED: SODIUM CHLORIDE 0.9% 1,000 ML IV ONE (10:46)
[2018-12-07] MEDS ORDERED: ONDANSETRON HCL 4MG/2ML INJ IV STA (10:46)
[2018-12-07] MEDS ORDERED: ALBUTEROL (0.083%) 2.5MG/3ML NEB HHN STA (10:46)
[2018-12-07] MEDS ORDERED: METHYLPREDNISOLONE SOD SUCC 125 MG/2 ML VIAL IV STA (10:46)
[2018-12-07] MEDS ORDERED: MORPHINE SULFATE 4 MG/ML CPJ (NOT FOR IM USE) IV STA (10:46)
[2018-12-07 11:51] LABS: BASOPHILS % 1.2 % (0.0-2.0); EOSINOPHILS % 1.3 % (0.0-5.0); HEMATOCRIT. 25.5 % (36.0-48.0); HEMOGLOBIN. 8.5 g/dL (12.0-16.0); MEAN CORPUSCULAR HEMOGLOBIN 29.5 pg (28.0-32.0); MEAN CORPUSCULAR VOLUME 88.2 fL (81.0-99.0); MEAN PLATELET VOLUME 8.7 fl (7.4-10.4); MONOCYTES % 8.2 % (2.0-8.0); NEUTROPHILS % 67.3 % (40.0-76.0); PLATELET 236 x1000/uL (130-400); RED BLOOD CELL COUNT 2.89 mill/uL (4.2-5.4); RED CELL DISTRIBUTION WIDTH 15.6 % (11.6-14.6)
[2018-12-07 11:53] LABS: CHLORIDE 104 mEq/L (98-107)
[2018-12-07] MEDS ORDERED: FENTANYL CITRATE/PF 50MCG/ML 2ML VIAL IV ONE (12:30)
[2018-12-07] MEDS ORDERED: HYDRALAZINE 20MG/ML VIAL IV ONE ×2 (12:30→14:00)
[2018-12-07] MEDS ORDERED: ASPIRIN 81MG TABLET PO ONE (12:30)
[2018-12-07] MEDS ORDERED: NITROGLYCERIN 0.4MG TABLET SL SL ONE (14:00)
[2018-12-07] MEDS ORDERED: HYDRALAZINE HCL 100MG TABLET PO ONE (14:00)
[2018-12-07] MEDS ORDERED: MORPHINE SULFATE 4 MG/ML CPJ (NOT FOR IM USE) IV NR (15:00)
[2018-12-07 16:45] VITALS: BP 151/75
[2018-12-07] MEDS ORDERED: FUROSEMIDE 40MG/4ML VIAL IVP NR (16:45)
[2018-12-07] MEDS ORDERED: ACETAMINOPHEN 325MG TABLET PO PRN (18:00)
[2018-12-07] MEDS ORDERED: ONDANSETRON HCL 4MG/2ML INJ IV PRN (18:00)
[2018-12-07] MEDS ORDERED: MORPHINE SULFATE 2 MG/ML CPJ (NOT FOR IM USE) IV PRN (18:00)
[2018-12-07] MEDS ORDERED: DIPHENHYDRAMINE 12.5MG/5ML UDC PEG PRN (18:15)
[2018-12-07] MEDS ORDERED: DEXTROSE 50% WATER 50ML SYRINGE IV PRN (19:00)
[2018-12-07] MEDS: AMLODIPINE 5MG TABLET PO SCH ×2 (19:13→21:20)
[2018-12-07 20:00] VITALS: BP 171/90
[2018-12-07] MEDS ORDERED: MEDICATION NOT ON FORMULARY EA (Insulin Glargine,Hum.rec.anlog (Lantus Solostar) 20 UNIT SQ SCH (21:00)
[2018-12-07] MEDS: BLOOD SUGAR DIAGNOSTIC STRIP TEST SCH (21:19)
[2018-12-07] MEDS: HYDRALAZINE HCL 100MG TABLET PO SCH (21:21)
[2018-12-07] MEDS: LISINOPRIL 20MG TABLET PO SCH (21:21)
[2018-12-07] MEDS: CLONIDINE 0.2MG TABLET PO SCH (21:22)
[2018-12-07] MEDS: INSULIN GLARGINE UD 100 UNITS/ML SYR SUBCUT SCH (21:43)
[2018-12-07] MEDS: INSULIN LISPRO 100 UNITS/ML SUBCUT SCH (22:35)
[2018-12-07] MEDS: MORPHINE SULFATE 4 MG/ML CPJ (NOT FOR IM USE) IV PRN (22:42)
[2018-12-07] MEDS ORDERED: METHYLPREDNISOLONE SOD SUCC 40 MG/ML VIAL IV SCH (23:00)
[2018-12-07 23:57] LABS: *AMPHETAMINES SCREEN URINE NEGATIVE (NEGATIVE); *BARBITURATES SCREEN URINE NEGATIVE (NEGATIVE); *BENZODIAZEPINES SCREEN URINE NEGATIVE (NEGATIVE); *COCAINE SCREEN URINE NEGATIVE (NEGATIVE)
[2018-12-07 23:58] LABS: CANNABINOID URINE SCREEN NEGATIVE (NEGATIVE); METHADONE URINE SCREEN NEGATIVE (NEGATIVE); OPIATES URINE SCREEN PRESUMTIVE POSITIVE (NEGATIVE); PHENCYCLIDINE URINE SCREEN NEGATIVE (NEGATIVE)
[2018-12-08] VITALS: BP 179/97
[2018-12-08] MEDS: IPRATROPIUM/ALBUTEROL 0.5-3(2.5)MG/3ML NEB HHN SCH ×6 (04:00→20:39)
[2018-12-08] MEDS: MORPHINE SULFATE 4 MG/ML CPJ (NOT FOR IM USE) IV PRN ×4 (04:24→21:30)
[2018-12-08] MEDS: CLONIDINE 0.2MG TABLET PO SCH ×3 (05:00→22:00)
[2018-12-08] MEDS: HYDRALAZINE HCL 100MG TABLET PO SCH ×3 (05:00→23:26)
[2018-12-08 06:11] LABS: HEMATOCRIT. 24.1 % (36.0-48.0); HEMOGLOBIN. 7.9 g/dL (12.0-16.0); MEAN CORPUSCULAR HEMOGLOBIN 28.7 pg (28.0-32.0); MEAN CORPUSCULAR VOLUME 87.1 fL (81.0-99.0); PLATELET 240 x1000/uL (130-400); RED BLOOD CELL COUNT 2.77 mill/uL (4.2-5.4); RED CELL DISTRIBUTION WIDTH 15.6 % (11.6-14.6)
[2018-12-08] MEDS ORDERED: FUROSEMIDE 20MG TABLET PO SCH (07:15)
[2018-12-08] MEDS: BLOOD SUGAR DIAGNOSTIC STRIP TEST SCH ×4 (07:53→20:34)
[2018-12-08 08:00] VITALS: BP 168/95
[2018-12-08] MEDS: METHYLPREDNISOLONE SOD SUCC 40 MG/ML VIAL IV SCH ×3 (08:44→21:29)
[2018-12-08] MEDS: LISINOPRIL 20MG TABLET PO SCH ×2 (08:44→21:28)
[2018-12-08] MEDS: NIFEDIPINE XL 60MG TAB PO SCH ×2 (08:44→21:29)
[2018-12-08] MEDS: NEBIVOLOL HCL 5 MG TABLET PO SCH ×2 (08:44→09:00)
[2018-12-08] MEDS: NICOTINE 14MG PATCH TD SCH (08:45)
[2018-12-08] MEDS: INSULIN LISPRO 100 UNITS/ML SUBCUT SCH ×4 (08:50→21:32)
[2018-12-08] MEDS ORDERED: MEDICATION NOT ON FORMULARY EA (Clonidine Hcl 1 TAB) MT SCH (09:00)
[2018-12-08] MEDS ORDERED: MEDICATION NOT ON FORMULARY EA (Hydralazine Hcl 1 TAB) MT SCH (09:00)
[2018-12-08] MEDS ORDERED: NICOTINE TP SCH ×2 (09:00)
[2018-12-08] MEDS ORDERED: MEDICATION NOT ON FORMULARY EA (Furosemide (Lasix) 1 TAB) MT SCH (09:00)
[2018-12-08] MEDS ORDERED: IOHEXOL-300 100 ML BOTTLE ONE (09:09)
[2018-12-08 11:48] LABS: PLATELET ESTIMATE NORMAL
[2018-12-08 12:00] VITALS: BP 168/92
[2018-12-08 16:00] VITALS: BP 127/67
[2018-12-08] MEDS: FUROSEMIDE 40MG/4ML VIAL IVP SCH (18:39)
[2018-12-08 20:00] VITALS: BP 116/66
[2018-12-08] MEDS: INSULIN GLARGINE UD 100 UNITS/ML SYR SUBCUT SCH (21:32)
[2018-12-09] VITALS (7 sets, daily range): BP systolic 120–147; BP diastolic 60–81
[2018-12-09] MEDS: IPRATROPIUM/ALBUTEROL 0.5-3(2.5)MG/3ML NEB HHN SCH ×6 (01:30→21:00)
[2018-12-09] MEDS: MORPHINE SULFATE 4 MG/ML CPJ (NOT FOR IM USE) IV PRN ×5 (01:49→22:33)
[2018-12-09] MEDS: METHYLPREDNISOLONE SOD SUCC 40 MG/ML VIAL IV SCH (06:23)
[2018-12-09] MEDS: HYDRALAZINE HCL 100MG TABLET PO SCH ×3 (06:24→23:03)
[2018-12-09] MEDS: BLOOD SUGAR DIAGNOSTIC STRIP TEST SCH ×4 (06:25→21:00)
[2018-12-09] MEDS: CLONIDINE 0.2MG TABLET PO SCH ×3 (06:25→23:02)
[2018-12-09] MEDS: INSULIN LISPRO 100 UNITS/ML SUBCUT SCH ×4 (06:57→23:05)
[2018-12-09] MEDS: NIFEDIPINE XL 60MG TAB PO SCH ×2 (09:00→23:58)
[2018-12-09] MEDS: NEBIVOLOL HCL 5 MG TABLET PO SCH (12:04)
[2018-12-09] MEDS: LISINOPRIL 20MG TABLET PO SCH ×2 (12:04→23:59)
[2018-12-09] MEDS: NICOTINE 14MG PATCH TD SCH (12:05)
[2018-12-09] MEDS ORDERED: INSULIN GLARGINE UD 100 UNITS/ML SYR SUBCUT ONE (12:45)
[2018-12-09] MEDS: DIPHENHYDRAMINE 50MG CAPSULE PO PRN ×2 (13:50→23:18)
[2018-12-09] MEDS: PREDNISONE 20MG TABLET PO SCH (13:50)
[2018-12-09] MEDS: FUROSEMIDE 40MG/4ML VIAL IVP SCH (14:58)
[2018-12-09] MEDS: INSULIN GLARGINE UD 100 UNITS/ML SYR SUBCUT SCH (23:05)
[2018-12-10] VITALS: BP 154/80
[2018-12-10] MEDS: MORPHINE SULFATE 4 MG/ML CPJ (NOT FOR IM USE) IV PRN ×5 (02:42→18:51)
[2018-12-10] MEDS: IPRATROPIUM/ALBUTEROL 0.5-3(2.5)MG/3ML NEB HHN SCH ×6 (03:55→20:28)
[2018-12-10 04:00] VITALS: BP 126/75
[2018-12-10] MEDS: BLOOD SUGAR DIAGNOSTIC STRIP TEST SCH ×4 (06:30→21:46)
[2018-12-10] MEDS: HYDRALAZINE HCL 100MG TABLET PO SCH ×3 (06:33→21:59)
[2018-12-10] MEDS: CLONIDINE 0.2MG TABLET PO SCH ×3 (06:34→22:00)
[2018-12-10] MEDS: INSULIN LISPRO 100 UNITS/ML SUBCUT SCH ×7 (07:20→21:59)
[2018-12-10 07:42] LABS: BASOPHILS % 0.2 % (0.0-2.0); HEMATOCRIT. 25.9 % (36.0-48.0); HEMOGLOBIN. 8.4 g/dL (12.0-16.0); LYMPHOCYTES % 8.5 % (20.0-50.0); MEAN CORPUSCULAR HEMOGLOBIN 28.5 pg (28.0-32.0); MEAN PLATELET VOLUME 9.4 fl (7.4-10.4); MONOCYTES % 6.5 % (2.0-8.0); NEUTROPHILS % 84.8 % (40.0-76.0); PLATELET 254 x1000/uL (130-400); RED BLOOD CELL COUNT 2.95 mill/uL (4.2-5.4); RED CELL DISTRIBUTION WIDTH 15.3 % (11.6-14.6)
[2018-12-10 08:00] VITALS: BP 127/84
[2018-12-10] MEDS: NICOTINE 14MG PATCH TD SCH (09:00)
[2018-12-10 09:07] LABS: *CREATININE RANDOM URINE 84.4 mg/dL (Not Estab.); MICROALBUMIN RANDOM URINE 1527.8 ug/mL (Not Estab.)
[2018-12-10] MEDS: LISINOPRIL 20MG TABLET PO SCH ×2 (09:17→21:00)
[2018-12-10] MEDS: NEBIVOLOL HCL 5 MG TABLET PO SCH (09:17)
[2018-12-10] MEDS: NIFEDIPINE XL 60MG TAB PO SCH ×2 (09:18→21:00)
[2018-12-10] MEDS: PREDNISONE 20MG TABLET PO SCH (09:33)
[2018-12-10 16:00] VITALS: BP 120/65
[2018-12-10 20:00] VITALS: BP 117/71
[2018-12-10] MEDS: INSULIN GLARGINE UD 100 UNITS/ML SYR SUBCUT SCH (21:58)
[2018-12-11] VITALS (7 sets, daily range): BP systolic 126–150; BP diastolic 62–79
[2018-12-11] MEDS: MORPHINE SULFATE 4 MG/ML CPJ (NOT FOR IM USE) IV PRN ×4 (00:04→13:03)
[2018-12-11] MEDS: IPRATROPIUM/ALBUTEROL 0.5-3(2.5)MG/3ML NEB HHN SCH ×4 (00:29→16:15)
[2018-12-11] MEDS: INSULIN LISPRO 100 UNITS/ML SUBCUT SCH ×6 (07:20→17:25)
[2018-12-11] MEDS: CLONIDINE 0.2MG TABLET PO SCH ×2 (07:30→14:59)
[2018-12-11] MEDS: HYDRALAZINE HCL 100MG TABLET PO SCH ×2 (07:30→14:59)
[2018-12-11] MEDS: BLOOD SUGAR DIAGNOSTIC STRIP TEST SCH ×3 (07:30→17:22)
[2018-12-11] MEDS: NICOTINE 14MG PATCH TD SCH (09:00)
[2018-12-11] MEDS: PREDNISONE 20MG TABLET PO SCH (09:56)
[2018-12-11] MEDS: NIFEDIPINE XL 60MG TAB PO SCH (09:56)
[2018-12-11] MEDS: LISINOPRIL 20MG TABLET PO SCH (09:57)
[2018-12-11] MEDS: NEBIVOLOL HCL 5 MG TABLET PO SCH (09:57)
[2018-12-11 10:35] LABS: BASOPHILS % 0.3 % (0.0-2.0); EOSINOPHILS % 0.5 % (0.0-5.0); HEMATOCRIT. 25.3 % (36.0-48.0); HEMOGLOBIN. 8.3 g/dL (12.0-16.0); LYMPHOCYTES % 17.5 % (20.0-50.0); MEAN CORPUSCULAR HEMOGLOBIN 28.8 pg (28.0-32.0); MEAN CORPUSCULAR VOLUME 87.9 fL (81.0-99.0); MEAN PLATELET VOLUME 9.3 fl (7.4-10.4); MONOCYTES % 12.4 % (2.0-8.0); NEUTROPHILS % 69.3 % (40.0-76.0); PLATELET 239 x1000/uL (130-400); RED BLOOD CELL COUNT 2.88 mill/uL (4.2-5.4); RED CELL DISTRIBUTION WIDTH 15.6 % (11.6-14.6)
[2018-12-11] MEDS ORDERED: TRAMADOL 50MG TABLET PO PRN (15:00)
[2018-12-19] MEDS ORDERED: TRAM50TA3 PO (18:27)
[2018-12-19] MEDS ORDERED: CYCL10TA7 MT (18:34)
[2018-12-19] MEDS ORDERED: INSLIS SUBCUT (18:34)
[2018-12-19] MEDS ORDERED: MORP60TA MT (18:34)
== END 2018-12-11 19:45 | disposition home or self-care (01) | DRG 140 ==
LOC: ER 10:09 → 6WST 14:26 → EDBEDREQ 14:30 → ENRESERV 15:30
PROVIDERS: ADMIT Internal Medicine; ATTEND Internal Medicine
DX: J44.1 Chronic obstructive pulmonary disease with (acute) exacerbation (principal); J96.90 Respiratory failure, unspecified, unspecified whether with hypoxia or hypercapnia; I50.31 Acute diastolic (congestive) heart failure; N17.9 Acute kidney failure, unspecified; D64.9 Anemia, unspecified; I50.30 Unspecified diastolic (congestive) heart failure; G89.4 Chronic pain syndrome; E87.5 Hyperkalemia; T38.0X5A Adverse effect of glucocorticoids and synthetic analogues, initial encounter; N18.9 Chronic kidney disease, unspecified; I13.0 Hypertensive heart and chronic kidney disease with heart failure and stage 1 through stage 4 chronic kidney disease, or unspecified chronic kidney disease; E87.1 Hypo-osmolality and hyponatremia; E11.65 Type 2 diabetes mellitus with hyperglycemia; E11.22 Type 2 diabetes mellitus with diabetic chronic kidney disease; I50.32 Chronic diastolic (congestive) heart failure; M79.7 Fibromyalgia; Z82.49 Family history of ischemic heart disease and other diseases of the circulatory system; Z87.891 Personal history of nicotine dependence; Z88.0 Allergy status to penicillin; Y92.89 Other specified places as the place of occurrence of the external cause; Z71.6 Tobacco abuse counseling
CPT/HCPCS: 36415; 71045; 74176; 76770; 80048; 80061; 80305; 82043; 82570; 82962; 83036; 83735; 83880; 84484; 93005; 94640; 99291; J0360; J1815; J1940; J2270; J2405; J2920; J2930; J3010; J7030; J7512; J7620; Q0163; Q9967

== ENCOUNTER 2019-01-02 23:53 | Emergency (ER) | payer MEDICAID ==
[~2019-01-02] VITALS: Ht 167.6 cm; Wt 61.0 kg
[~2019-01-02 23:53] MED LIST changes: -BENA5TAB6 MT; -CIPROFLOXACIN EACHEYE; +CYCL10TA7 MT; -DIPH50CA38 MT; -LISI-186; +MORP60TA MT; -TRAM150C25 PO; -[UNRECOGNIZED DRUG - OTHER]; -[UNRECOGNIZED DRUG - OTHER]
[2019-01-03] MEDS ORDERED: MORPHINE SULFATE 4 MG/ML CPJ (NOT FOR IM USE) IV STA (04:36)
[2019-01-03] MEDS ORDERED: CLONIDINE 0.2MG TABLET PO ONE (04:45)
[2019-01-03 04:57] LABS: BASOPHILS % 0.7 % (0.0-2.0); EOSINOPHILS % 1.9 % (0.0-5.0); HEMATOCRIT. 30.3 % (36.0-48.0); HEMOGLOBIN. 10.1 g/dL (12.0-16.0); LYMPHOCYTES % 18.9 % (20.0-50.0); MEAN CORPUSCULAR HEMOGLOBIN 29.1 pg (28.0-32.0); MEAN CORPUSCULAR VOLUME 87.1 fL (81.0-99.0); MEAN PLATELET VOLUME 9.1 fl (7.4-10.4); MONOCYTES % 12.3 % (2.0-8.0); NEUTROPHILS % 66.2 % (40.0-76.0); PLATELET 237 x1000/uL (130-400); RED BLOOD CELL COUNT 3.48 mill/uL (4.2-5.4); RED CELL DISTRIBUTION WIDTH 15.6 % (11.6-14.6)
[2019-01-03 05:01] LABS: CHLORIDE 109 mEq/L (98-107)
[2019-01-03 05:08] LABS: ETHANOL BLOOD < 10 mg/dL
[2019-01-03 05:11] LABS: INR 0.9; PROTHROMBIN TIME 9.5 sec (9.6-11.0)
[2019-01-03] MEDS ORDERED: KETOROLAC 30MG/ML VIAL IV STA (07:46)
[2019-01-03] MEDS ORDERED: HYDRALAZINE 20MG/ML VIAL IV ONE (08:00)
[2019-01-03] MEDS ORDERED: LORAZEPAM 2MG/ML CPJ IV ONE ×2 (09:30→12:00)
[2019-01-03] MEDS ORDERED: MORPHINE SULFATE 4 MG/ML CPJ (NOT FOR IM USE) IV ONE (16:45)
[2019-01-03] MEDS ORDERED: AMLODIPINE 10MG TABLET PO ONE (17:00)
[2019-01-03 17:55] VITALS: BP 197/102
== END 2019-01-03 18:45 | disposition short-term general hospital (02) ==
LOC: ER 23:53 → CANBEDREQ 01-03 13:12 → ER 01-03 18:45
DX: I10 Essential (primary) hypertension (principal); N28.9 Disorder of kidney and ureter, unspecified; R79.89 Other specified abnormal findings of blood chemistry; M79.10 Myalgia, unspecified site; R51 Headache; F17.200 Nicotine dependence, unspecified, uncomplicated; Z88.0 Allergy status to penicillin; Z79.4 Long term (current) use of insulin; Z79.899 Other long term (current) drug therapy
CPT/HCPCS: 36415; 80053; 80320; 84484; 85025; 85610; 93005; 96374; 96375; 96376; 99285; J0360; J1885; J2060; J2270; G0480

== ENCOUNTER 2019-01-24 21:05 | Emergency (ER) | payer MEDICAID ==
[~2019-01-24] VITALS: Ht 167.6 cm; Wt 77.0 kg
[2019-01-25] MEDS ORDERED: ONDANSETRON HCL 4MG/2ML INJ IV ONE (00:15)
[2019-01-25] MEDS ORDERED: MORPHINE SULFATE 10 MG/ML CPJ IV ONE (00:15)
[2019-01-25] MEDS ORDERED: DIPHENHYDRAMINE 50MG/ML VIAL IV ONE (00:15)
[2019-01-25 02:09] VITALS: BP 178/86
== END 2019-01-25 02:10 | disposition home or self-care (01) ==
LOC: ER 21:05
DX: M79.7 Fibromyalgia (principal); G89.29 Other chronic pain; M79.10 Myalgia, unspecified site; E11.9 Type 2 diabetes mellitus without complications; I10 Essential (primary) hypertension; Z88.6 Allergy status to analgesic agent; Z88.0 Allergy status to penicillin; Z79.4 Long term (current) use of insulin
CPT/HCPCS: 96374; 96375; 99283; J1200; J2270; J2405

== ENCOUNTER 2019-02-06 06:02 | Emergency (ER) | payer MEDICAID ==
[~2019-02-06] VITALS: Ht 172.7 cm; Wt 62.0 kg
[2019-02-06] MEDS ORDERED: MORPHINE SULFATE 4 MG/ML CPJ (NOT FOR IM USE) IV STA (06:49)
[2019-02-06] MEDS ORDERED: HYDRALAZINE HCL 100MG TABLET PO ONE (08:45)
[2019-02-06] MEDS ORDERED: OXYCODONE HCL/ACETAMINOPHEN 5/325MG TABLET PO ONE (08:45)
[2019-02-06] MEDS ORDERED: TRAMADOL 50MG TABLET PO ONE (08:45)
[2019-02-06 09:03] VITALS: BP 210/106
== END 2019-02-06 09:06 | disposition home or self-care (01) ==
LOC: ER 06:02
DX: G89.29 Other chronic pain (principal); M79.7 Fibromyalgia; E11.9 Type 2 diabetes mellitus without complications; I10 Essential (primary) hypertension; J44.9 Chronic obstructive pulmonary disease, unspecified; G35 Multiple sclerosis; Z79.4 Long term (current) use of insulin; Z88.0 Allergy status to penicillin; Z88.6 Allergy status to analgesic agent
CPT/HCPCS: 96374; 99284; J2270; Z7610

== ENCOUNTER 2019-02-12 22:49 | Emergency (ER) | payer MEDICAID ==
[~2019-02-12] VITALS: Ht 170.2 cm; Wt 62.0 kg
[2019-02-13] MEDS ORDERED: HYDRALAZINE 20MG/ML VIAL IV ONE
[2019-02-13] MEDS ORDERED: KETOROLAC 30MG/ML VIAL IV ONE
[2019-02-13 00:42] LABS: EOSINOPHILS % 1.3 % (0.0-5.0); HEMATOCRIT. 25.4 % (36.0-48.0); HEMOGLOBIN. 8.3 g/dL (12.0-16.0); LYMPHOCYTES % 17.2 % (20.0-50.0); MEAN CORPUSCULAR HEMOGLOBIN 29.4 pg (28.0-32.0); MEAN CORPUSCULAR VOLUME 89.5 fL (81.0-99.0); MEAN PLATELET VOLUME 9.4 fl (7.4-10.4); MONOCYTES % 6.4 % (2.0-8.0); NEUTROPHILS % 74.1 % (40.0-76.0); PLATELET 322 x1000/uL (130-400); RED BLOOD CELL COUNT 2.84 mill/uL (4.2-5.4); RED CELL DISTRIBUTION WIDTH 16.4 % (11.6-14.6)
[2019-02-13 00:48] LABS: CHLORIDE 99 mEq/L (98-107)
[2019-02-13 00:56] LABS: CREATINE KINASE 172 IU/L (26-192)
[2019-02-13] MEDS ORDERED: INSULIN LISPRO 100 UNITS/ML SUBCUT SCH (01:30)
[2019-02-13] MEDS ORDERED: SODIUM CHLORIDE 0.9% 1,000 ML IV ONE (02:00)
[2019-02-13] MEDS ORDERED: MORPHINE SULFATE 4 MG/ML CPJ (NOT FOR IM USE) IV ONE (02:45)
[2019-02-13 03:15] VITALS: BP 199/111
== END 2019-02-13 03:20 | disposition home or self-care (01) ==
LOC: ER 22:49
DX: G89.29 Other chronic pain (principal); M79.7 Fibromyalgia; J45.909 Unspecified asthma, uncomplicated; E11.9 Type 2 diabetes mellitus without complications; I10 Essential (primary) hypertension; F17.200 Nicotine dependence, unspecified, uncomplicated; Z79.4 Long term (current) use of insulin; Z88.0 Allergy status to penicillin; Z88.6 Allergy status to analgesic agent; Z98.51 Tubal ligation status
CPT/HCPCS: 36415; 80053; 82550; 85025; 96372; 96374; 96375; 99283; J0360; J1815; J1885; J2270; Z7610